=== PATIENT | male | born 1975 | race Caucasian/White ===

== ENCOUNTER 2017-02-04 08:40 | Emergency (ER) | payer OTHER ==
[2017-02-04] VITALS (7 sets, daily range): BP systolic 121–143; BP diastolic 61–73; PULSE 50–71; RESP 16–20; O2SAT 96–99
[~2017-02-04] VITALS: Ht 182.9 cm; Wt 109.0 kg
[~2017-02-04 08:40] MED LIST: BACID PO; GFN600TCR PO; LEV250 PO
[2017-02-04 09:04] LABS: BASOPHILS % (AUTO) 0.8 % (0-3); EOSINOPHILS % (AUTO) 7.4 % (0-5); MONOCYTES % (AUTO) 5.9 % (4-12); Mean Corpuscular Hemoglobin 29.7 pg (27.0-35.0); Mean Corpuscular Volume 84.4 fL (81-100); NEUTROPHILS % (AUTO) 54.4 % (40-74); Platelet Count 184 bil/L (150-400)
[2017-02-04 09:35] LABS: TROPONIN T 0.01 ug/L (0.0-0.011)
--- NOTE | 2017-02-04 09:41 | ED.REPORT ---
HPI-Chest Pain 40 and Over Date of Service Feb 04, 2017 ED Provider: Dara Clement MD Patient is an otherwise healthy 41 year old male who presents to the ED from urgent care complaining of intermittent, left sided chest pain onset 6-8 mo ago that has been worse for the past 2 weeks. His pain radiates over his shoulder and down to his L arm. It is worse in the morning and evening but is not activity limiting. Patient reports that there is not something that brings the pain on or makes it go away and that it is not exertional. Associated symptoms include nausea, palpitations and occasional diaphoresis. He denies vomiting, SOB , or any other symptoms. He was given 324mg ASA and an IV at . He does not routinely see a physician. 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 Nursing Notes Stated Complaint: CHEST PAIN Chief Complaint: Chest Pain Nursing Notes Reviewed: Yes Allergies: Coded Allergies: hydromorphone (Verified Allergy, Unknown, vomiting, 02/04/17) Scheduled ([Bacid]) 2 EA PO PCHS TO PREVENT ANTIBIOTIC RELATED DIARRHEA CONTINUE WHILE ON ANTIBIOTICS Levofloxacin-Expunged Drug, Do Not Renew! (Levaquin-Expunged Drug, Do Not Renew! ) 250 Mg Tablet 750 MG PO DAILYAC FOR PNEUMONIA 1ST DOSE 01/28 guaiFENesin-Expunged Drug, Do Not Renew! (Humibid LA-Expunged Drug, Do Not Renew !) 600 Mg Tablet 600 MG PO Q12H FOR COUGH General Time Seen by MD: 08:42 Chief Complaint Chest pain Hx Obtained From: Patient Arrived By: Walk-in Sudden in Onset?: Yes Onset Occurred: More than a week ago... Symptom Duration: Intermittent Location: : Chest right Quality: Painful, Pressure Radiation: : Arm left Severity: Current: Moderate Recent Healthcare: Recent doctor visit Similar Sx Previous: Yes Risk Factors )( CAD Risk Stratification No Diabetes mellitus, No Hyperlipidemia, No Hypertension, No Known CAD, No Smoking Risk factors reviewed )( TAD Risk Stratification No Aortic valve disease, No Hypertension, No Risk factors reviewed )( PE Risk Stratification No , No , No Previous DVT, No Previous PE Risk factors reviewed Past Medical History Past Medical History chronic low back pain Migraines Past Surgical History knee surg Reports: Appendectomy Smoking History Never Smoker Social History Other Social History: Ambulatory Status Independent Review of Systems Constitutional: Denies: Chills, Fever Respiratory: Denies: Non-productive cough, Shortness of breath Cardiovascular: Reports: Chest pain, Palpitations GI: Denies: Nausea, Vomiting Skin: Reports Diaphoresis, Denies Itching, Denies Rash Neurologic: Denies: Lightheaded, Weakness Complete sys rev & neg: except as marked. Physical Exam Initial Vital Signs Vital Signs (First) Date Time Temp Pulse Resp B/P Pulse Ox O2 Delivery O2 Flow Rate FiO2 02/04/17 08:45 69 16 140/72 97 Room Air 02/04/17 08:47 36.4 Initial VS: Reviewed General/Constitutional: Awake, Alert Respiratory / Chest: Atraumatic, Breath sounds NL, Breath sounds = bilat, No respiratory distress Cardiovascular: Heart rate NL, Regular rhythm, Heart sounds NL Abdomen: Atraumatic, Soft, Non-tender Neck: Atraumatic, Supple, Full range of motion Lower Extremity / Pelvis / MS: Atraumatic, Full range of motion Skin: Atraumatic, Color NL, No rash, Warm, Dry Neurologic: Oriented X3, Speech NL, No motor deficits, No sensory deficits no reproducable radicular pain with neck manipulation Psychiatric: Affect NL Abnormal Mood/Affect: Positive: Anxious Head / Eyes: Atraumatic, Normocephalic, PERRL, EOMI Upper Extremity / MS: Atraumatic, Full range of motion Interpretation & Diagnostics Lab Results Interpretation Result Diagram: 02/04/17 0837 02/04/17 0837 Test 02/04/17 08:37 White Blood Count 7.1th/mm3 (3.8-10.1) Red Blood Count 4.88mil/mm3 (4.40-5.80) Hemoglobin 14.5g/dL (13.8-17.2) Hematocrit 41.2% (41.0-50.0) Mean Corpuscular Volume 84.4fL (81-100) Mean Corpuscular Hemoglobin 29.7pg (27.0-35.0) Mean Corpuscular Hemoglobin Concent 35.2% (32.0-37.0) Red Cell Distribution Width 13.3% (12.3-15.4) Platelet Count 184bil/L (150-400) Neutrophils (%) (Auto) 54.4% (40-74) Lymphocytes (%) (Auto) 30.9% (14-46) Monocytes (%) (Auto) 5.9% (4-12) Eosinophils (%) (Auto) 7.4% (0-5) Basophils (%) (Auto) 0.8% (0-3) Sodium Level 140mEq/L (134-144) Potassium Level 3.7mEq/L (3.5-5.2) Chloride Level 103mEq/L (97-108) Carbon Dioxide Level 20mmol/L (18-29) Blood Urea Nitrogen 10mg/dL (6-24) Creatinine 0.86mg/dL (0.76-1.27) Estimat Glomerular Filtration Rate 105mL/min (>59) Glucose Level 155mg/dL (60-99) Calcium Level 8.8mg/dL (8.5-10.1) Magnesium Level 1.8mg/dL (1.6-2.6) Total Bilirubin 0.4mg/dL (0.0-1.2) Aspartate Amino Transf (AST/SGOT) 21U/L (0-50) Alanine Aminotransferase (ALT/SGPT) 24U/L (0-44) Alkaline Phosphatase 56U/L (25-150) Troponin T 0.010ug/L (0.0-0.011) Total Protein 6.7g/dL (6.4-8.4) Albumin 4.2g/dL (3.4-5.0) ECG Interpretation ECG Interpretation: Sinus rate 66 No ischemia Time: 08:59 Interpreted by: ED physician ECG Interpretation: no EKG changes, while patient was in pain Time: 09:56 Normal ECG Interpretation: Normal rate (59), Normal sinus rhythm X-Ray Chest Interpretation Chest Xray Interpretation: IMPRESSION: 1. No acute cardiopulmonary disease. Dictated by: Kishan Gomez M.D. on 02/04/2017 at 9:41 Approved by: Kishan Gomze M.D. on 02/04/2017 at 9:42 View: Portable, 1 view Interpretation / Wet Read by: Interpret - Radiologist Re-Eval/Medical Decision Time of Eval: 10:40 Re-Evaluation/Progress Note: Discussed all results and plan for discharge. Patient understands and agrees to plan. All questions were addressed. Counseled Regarding: Diagnosis, Lab results, Need for follow-up, When/why to return to ED Discharge & Departure Primary Impression: Non-cardiac chest pain Disposition: Home Discharge Condition All VS Reviewed: Yes Condition: Stable Patient Instructions: Musculoskeletal Pain (ED), Noncardiac Chest Pain (ED) Additional Instructions: Your chest X-ray and multiple EKGs were all normal and reassuring. Your blood work also looked normal and reassuring. At this time, we are unsure what is causing your pain, most likely it is something musculoskeletal. You can try icing the different areas of pain to see which gives you the most relief. You can also take ibuprofen as needed for pain. Follow up with your primary care physician for further evaluation. There are multiple referred orthopedic doctors attached. Return to the emergency department if you develop difficulty breathing or increasing pain. Referrals: Jeramie Araujo MD [facility] Residency [facility] Scribe Attestation Portions of this note were transcribed by Radha Lainez. I, Dr. Clement personally performed the history, physical exam and medical decision-making; I reviewed and confirmed the accuracy of the information in the transcribed note. Signed by: Denice Morillo, 02/04/17 copies to: Francis Edward DO; [facility] Res[facility] Dara Clement MD Feb 04, 2017 09:41 OPAL KANG Feb 04, 2017 09:47 Mireya Lainez Feb 04, 2017 09:57
--- NOTE | 2017-02-04 09:44 | DRSVH ---
PROCEDURE: X-RAY CHEST ONE VIEW, PORTABLE ([id number]) INDICATIONS: CHEST PAIN TECHNIQUE: One view of the chest was acquired. COMPARISON: [facility], CR, CHEST 2VW, 01/25/2013, 14:41. FINDINGS: Surgical changes and devices: None. Lungs and pleura: No pleural effusions or pneumothorax. Lungs are clear. Mediastinum: Mediastinal contours appear normal. Heart size is normal. Bones and chest wall: No suspicious bony lesions. Overlying soft tissues appear unremarkable. IMPRESSION: 1. No acute cardiopulmonary disease. Dictated by: Kishan Gomez M.D. on 02/04/2017 at 9:41 Approved by: Kishan Gomez M.D. on 02/04/2017 at 9:42
[2017-02-04 09:46] LABS: Magnesium 1.8 mg/dL (1.6-2.6)
== END 2017-02-04 11:03 | disposition home or self-care (01) ==
LOC: SED 08:40
DX: R07.89 Other chest pain (principal); R11.0 Nausea; R00.2 Palpitations; R61 Generalized hyperhidrosis; M54.9 Dorsalgia, unspecified; G89.29 Other chronic pain; Z88.5 Allergy status to narcotic agent
CPT/HCPCS: 36415; 71010; 80053; 82948; 83735; 84484; 85025; 93005; 96374; 99285; J1885